=== PATIENT | female | born 1995 | race Two or more races ===

== ENCOUNTER 2018-01-29 00:19 | Inpatient (IN) | payer OTHER, MEDICAID ==
[~2018-01-29] VITALS: Ht 157.5 cm; Wt 55.3 kg
[2018-01-29] MEDS ORDERED: SODIUM CHLORIDE 0.9% 2,000 ML IV ONE (00:45)
[2018-01-29 00:59] LABS: BASOPHILS % (AUTO) 0.6 % (0.0-2.0); EOSINOPHILS % (AUTO) 3.1 % (1.0-6.0); HEMATOCRIT 41.4 % (36-46); HEMOGLOBIN 14.4 g/dL (12.0-16.0); LYMPHOCYTES % (AUTO) 20.2 % (22.0-44.0); MEAN CORPUSCULAR HEMOGLOBIN 30.2 pg (26.0-34.0); MEAN CORPUSCULAR HGB CONC 34.8 G/dL (31.0-37.0); MEAN CORPUSCULAR VOLUME 87 fL (80-100); MONOCYTES # (AUTO) 0.6 K/uL (0.1-1.0); MONOCYTES % (AUTO) 6.4 % (2.0-9.0); NEUTROPHILS # (AUTO) 6.8 K/uL (1.8-7.7); NEUTROPHILS % (AUTO) 69.7 % (40.0-70.0); PLATELET COUNT (AUTO) 247 K/uL (150-450); RED BLOOD CELL COUNT(AUTO) 4.78 MIL/uL (4.00-5.20); RED CELL DISTRIBUTION WIDTH 13.1 % (11.5-14.5)
[2018-01-29 01:07] LABS: ANION GAP 8 mmol/L (8-16); CALCIUM, TOTAL 8.9 mg/dL (8.8-10.5); CARBON DIOXIDE 29 mmol/L (22-29); CHLORIDE 104 mmol/L (98-107); CREATININE 0.79 mg/dL (0.60-1.30); GLOMERULAR FILTR. RATE CALC > 60 mL/min (>60); GLUCOSE,RANDOM 75 mg/dL (70-110); POTASSIUM 3.6 mmol/L (3.5-5.1); SODIUM SERUM 141 mmol/L (136-145); UREA NITROGEN, BLOOD 10 mg/dL (7-18)
[2018-01-29 01:13] LABS: ALANINE AMINOTRANSFERASE 22 U/L (12-78); ALBUMIN 4.4 g/dL (3.4-5.0); ALKALINE PHOSPHATASE 64 U/L (46-116); ASPARTATE AMINOTRANSFERASE 13 U/L (15-37); BILIRUBIN,TOTAL 0.4 mg/dL (0.1-1.0); TOTAL PROTEIN, SERUM 8.1 g/dL (6.4-8.2)
[2018-01-29 01:17] LABS: ACETAMINOPHEN < 2 mcg/mL (10-30)
[2018-01-29 01:25] LABS: SALICYLATE 0.4 mg/dL (2.8-20.0)
[2018-01-29] MEDS ORDERED: PANTOPRAZOLE SODIUM 40 MG/VIAL IVP ONE (01:45)
[2018-01-29] MEDS ORDERED: PB/HYOSCY/ATR/SCOP/LIDO/MAALOX 55 ML BOTTLE PO ONE (01:45)
[2018-01-29 02:06] LABS: AMPHET/METH SCREEN,URINE NEGATIVE (NEGATIVE); BARBITURATE SCREEN, URINE NEGATIVE (NEGATIVE); BENZODIAZEPINES SCREEN,URINE NEGATIVE (NEGATIVE); CANNABINOID SCREEN,URINE NEGATIVE (NEGATIVE); COCAINE SCREEN,URINE NEGATIVE (NEGATIVE); METHADONE SCREEN, URINE NEGATIVE (NEGATIVE); OPIATE SCREEN,URINE NEGATIVE (NEGATIVE)
[2018-01-29 02:12] LABS: PHENCYCLIDINE SCREEN,URINE NEGATIVE (NEGATIVE)
[2018-01-29 03:26] LABS: CREATININE 0.65 mg/dL (0.60-1.30); GLOMERULAR FILTR. RATE CALC > 60 mL/min (>60)
[2018-01-29] MEDS ORDERED: LORazepam 1 MG TABLET PO PRN (03:30)
[2018-01-29] MEDS ORDERED: ZOLPIDEM TARTRATE 10 MG TABLET PO PRN (03:30)
[2018-01-29] MEDS ORDERED: HALOPERIDOL 5 MG TABLET PO PRN (03:30)
[2018-01-29 03:37] LABS: SALICYLATE < 0.2 mg/dL (2.8-20.0)
[2018-01-29 04:20] LABS: APPEARANCE,URINE CLEAR (CLEAR)
[2018-01-29 04:21] LABS: BILIRUBIN,URINE NEGATIVE (NEGATIVE); GLUCOSE, URINE (UA) NEGATIVE (NEGATIVE); KETONES,URINE NEGATIVE (NEGATIVE); LEUKOCYTE ESTERASE ,URINE NEGATIVE (NEGATIVE); NITRATE,URINE NEGATIVE (NEGATIVE); OCCULT BLOOD,URINE NEGATIVE (NEGATIVE); PH,URINE 7.5 (5.0-8.0); PROTEIN,URINE NEGATIVE (NEGATIVE); UROBILINOGEN,URINE 0.2 mg/dL (<=1.0)
[2018-01-29 18:15] VITALS: BP 114/68
[2018-01-30 06:16] VITALS: BP 111/67
[2018-01-30 07:54] LABS: CHOL/HDL RATIO 1.8 (3.9-5.7); FREE T4 (FREE THYROXINE) 0.89 ng/dL (0.76-1.46); THYROID STIMULATING HORMONE 1.64 uIU/mL (0.36-3.74)
[2018-01-30] MEDS ORDERED: FLUoxetine HCL 20 MG CAPSULE PO SCH (09:00)
[2018-01-30 11:06] VITALS: BP 110/65
[2018-01-30 17:00] VITALS: BP 98/63
[2018-01-31] MEDS: FLUoxetine HCL 20 MG CAPSULE PO SCH (08:46)
[2018-01-31 09:31] VITALS: BP 115/67
[2018-01-31] MEDS ORDERED: IBUPROFEN 600 MG TABLET PO PRN (11:15)
[2018-01-31] MEDS ORDERED: ACETAMINOPHEN 325 MG TABLET PO PRN (11:15)
[2018-01-31 19:08] VITALS: BP 98/65
[2018-02-01] MEDS: FLUoxetine HCL 20 MG CAPSULE PO SCH (08:27)
[2018-02-01 09:28] VITALS: BP 112/67
[2018-02-01] MEDS ORDERED: FLUO-191 PO (09:54)
== END 2018-02-01 12:48 | disposition home or self-care (01) | DRG 885 ==
LOC: EMS 00:20 → 3EI 17:12
PROVIDERS: ADMIT Psychiatry & Neurology Psychiatry; ATTEND Psychiatry & Neurology Psychiatry
DX: F33.2 Major depressive disorder, recurrent severe without psychotic features (principal); R45.851 Suicidal ideations; T39.312A Poisoning by propionic acid derivatives, intentional self-harm, initial encounter; R10.13 Epigastric pain; Z63.9 Problem related to primary support group, unspecified
CPT/HCPCS: 82565; 84439; 84443; 93005; 96374; 99285; C9113; G0480; G0481; J7030